=== PATIENT | female | born 1990 | race Two or more races ===

== ENCOUNTER 2024-07-22 20:29 | Emergency (ER) | payer MEDICAID, OTHER ==
[~2024-07-22] VITALS: Ht 149.9 cm; Wt 57.7 kg
[2024-07-22 21:02] VITALS: BP 164/101; PULSE 89; RESP 18; TEMP 97.8; O2SAT 100
== END 2024-07-23 00:06 | disposition home or self-care (01) ==
LOC: ER 20:29
DX: N63.11 Unspecified lump in the right breast, upper outer quadrant (principal); Z87.891 Personal history of nicotine dependence
CPT/HCPCS: 76642